=== PATIENT | female | born 1980 | race African-American/Black ===

== ENCOUNTER 2018-07-29 06:19 | Emergency (ER) | payer SELFPAY ==
[~2018-07-29] VITALS: Ht 165.1 cm; Wt 142.9 kg
[2018-07-29 06:23] VITALS: BP 138/76
[2018-07-29] MEDS ORDERED: HYDROcodone/APAP 5/325MG 1 TAB TABLET PO ONE (06:45)
[2018-07-29] MEDS ORDERED: ONDANSETRON ODT 4 MG TAB.RAPDIS. PO ONE (06:45)
--- NOTE | 2018-07-29 07:33 | RAD ---
RIGHT SHOULDER , 3 VIEWS Clinical Indication: FALL ON ICE THIS MORNING. RIGHT SCAPULAR PAIN Comparison: None. Findings: There is no acute fracture or dislocation. The acromioclavicular and glenohumeral joints are intact. The visualized lung is clear. There is no evidence of a displaced rib fracture. There is no soft tissue abnormality. IMPRESSION: No acute fracture or dislocation. Electronically signed by: Jeremias Rowell MD (07/29/2018 7:29 AM) [facility]
--- NOTE | 2018-07-29 07:35 | RAD ---
KNEE 3 VIEWS LEFT Clinical Indication: FALL ON ICE THIS MORNING. RIGHT KNEE PAIN Comparison: None. Findings: There is no acute fracture or dislocation. There is mild joint space narrowing in all 3 compartments. There are moderate marginal osteophytes of the lateral compartment. The patella is in anatomic position. There is no soft tissue abnormality. There is no joint effusion. IMPRESSION: 1. No acute fracture. 2. Lateral compartment primary or secondary degenerative arthropathy. Electronically signed by: Jeremias Rowell MD (07/29/2018 7:30 AM) [facility]
--- NOTE | 2018-07-29 07:52 | PHYS DOC ---
Past Medical History Past Medical History: Sickle Cell Disease, Other Additional Past Medical Histor: Sickle Beta Thalassemia, Pernicious Anemia, Osteoarthritis Past Surgical History: Cholecystectomy, Gastric Bypass, Other Additional Past Surgical Histo: Umbilical Hernia, Lumpectomy Alcohol Use: Rarely Drug Use: None Adult General Chief Complaint Chief Complaint: MECHANICAL FALL HPI HPI Patient is a 38 year old female who is presenting to the emergency room with chief complaint of fall she slipped on some slippery snow at work she hurt her right shoulder and her right knee and her right low back she also cracked a tooth no headache no loss of consciousness no neck pain. Review of Systems Review of Systems Respiratory: Denies cough or shortness of breath [] Cardiovascular: No additional information not addressed in HPI [] GI: Denies abdominal pain, nausea, vomiting, bloody stools or diarrhea [] Musculoskeletal: Integument: Denies rash or skin lesions [] Neurologic: Denies headache, focal weakness or sensory changes [] Endocrine: Denies polyuria or polydipsia [] All other systems were reviewed and found to be within normal limits, except as documented in this note. Current Medications Current Medications Current Medications Medications (Trade) Dose Ordered Sig/Xavier Start Time Stop Time Status Last Admin Dose Admin Acetaminophen/ Hydrocodone Bitart (Lortab 5/325) 2 tab 1X ONCE 07/29/18 06:45 07/29/18 06:46 DC 07/29/18 06:58 2 TAB Ondansetron HCl (Zofran Odt) 4 mg 1X ONCE 07/29/18 06:45 07/29/18 06:46 DC 07/29/18 06:57 4 MG Allergies Allergies Allergies Coded Allergies Type Severity Reaction Last Updated Verified NSAIDS (Non-Steroidal Anti-Inflamma Allergy Severe Hives, Throat Swelling Yes Physical Exam Physical Exam Constitutional: Well developed, well nourished, no acute distress, non-toxic appearance. [] HENT: Normocephalic, atraumatic, bilateral external ears normal, oropharynx moist, no oral exudates, nose normal. [] Eyes: PERRLA, EOMI, conjunctiva normal, no discharge. [] Neck: Normal range of motion, no tenderness, supple, no stridor. [] No chest wall tenderness Abdomen: Bowel sounds normal, soft, no tenderness, no masses, no pulsatile masses. [] Skin: Warm, dry, no erythema, no rash. Right paraspinous tenderness is noted. Extremities: Mild tenderness of the right shoulder also mild tenderness of the right knee no focal abnormality or trauma was identified otherwise passive range of motion of the shoulder essentially intact Neurologic: Alert and oriented X 3, normal motor function, normal sensory function, no focal deficits noted. [] Current Patient Data Vital Signs Vital Signs Date Time Temp Pulse Resp B/P (MAP) Pulse Ox O2 Delivery O2 Flow Rate FiO2 07/29/18 06:58 18 97 Room Air 07/29/18 06:23 98.1 87 138/76 (96) 98.1 EKG EKG [] Radiology/Procedures Radiology/Procedures [] Course & Med Decision Making Course & Med Decision Making Pertinent Labs and Imaging studies reviewed. (See chart for details) []Shoulder any x-ray were negative acute patient was given a sling for comfort recommended [id number] pain control and short note time off work given. Dragon Disclaimer Dragon Disclaimer This electronic medical record was generated, in whole or in part, using a voice recognition dictation system. Departure Departure Impression: Primary Impression: Shoulder pain Disposition: 01 HOME, SELF-CARE Condition: STABLE Patient Instructions: Shoulder Sprain HERMAN LINDA MD Jul 29, 2018 07:52
[2018-07-30] MEDS ORDERED: METH4TAB2 PO (09:13)
== END 2018-07-29 07:31 | disposition home or self-care (01) ==
LOC: ER 06:19
DX: M25.511 Pain in right shoulder (principal); M25.561 Pain in right knee; M54.5 Low back pain; G89.11 Acute pain due to trauma; M19.90 Unspecified osteoarthritis, unspecified site; Z86.2 Personal history of diseases of the blood and blood-forming organs and certain disorders involving the immune mechanism; Z88.6 Allergy status to analgesic agent; W00.0XXA Fall on same level due to ice and snow, initial encounter; Y93.89 Activity, other specified; Y92.89 Other specified places as the place of occurrence of the external cause; Y99.8 Other external cause status
CPT/HCPCS: 73030; 73562; 99284; Q0162

== ENCOUNTER 2018-07-30 07:19 | Emergency (ER) | payer SELFPAY ==
[~2018-07-30] VITALS: Ht 165.1 cm; Wt 147.4 kg
[2018-07-30 08:23] VITALS: BP 133/67
--- NOTE | 2018-07-30 08:34 | PHYS DOC ---
Past Medical History Past Medical History: Sickle Cell Disease, Other Additional Past Medical Histor: Sickle Beta Thalassemia, Pernicious Anemia, Osteoarthritis Past Surgical History: Cholecystectomy, Gastric Bypass, Other Additional Past Surgical Histo: Umbilical Hernia, Lumpectomy Alcohol Use: Rarely Drug Use: None Adult General Chief Complaint Chief Complaint: SOBEIDAUDLER HPI HPI Patient is a 38 year old female who presents today complaining of a sharp 8 out of 10 right shoulder pain that has been going on intermittently since Monday when she fell. Patient states she was at work, she states she slipped on ice and fell landing on her right shoulder. Patient denies any loss of consciousness. She states she was seen in the ED on Monday after falling, had negative x-rays and was provided a sling. She states she was also given a note for work for a couple days including today, she states her boss called her and asked her to go back to work today. She states when she was at work she opened a truck door and was pulling the door when she developed right shoulder pain. She states she heard a "pop" sound from the shoulder. Patient states the pain is worse on range of motion. She states she has not taken anything for her pain. Review of Systems Review of Systems Constitutional: Denies fever or chills [] Musculoskeletal: Reports right shoulder pain Integument: Denies rash or skin lesions [] Neurologic: Denies headache, focal weakness or sensory changes [] All other systems were reviewed and found to be within normal limits, except as documented in this note. Allergies Allergies Allergies Coded Allergies Type Severity Reaction Last Updated Verified NSAIDS (Non-Steroidal Anti-Inflamma Allergy Severe Hives, Throat Swelling Yes Physical Exam Physical Exam Constitutional: Well developed, well nourished, no acute distress, non-toxic appearance. [] Skin: Warm, dry, no erythema, no rash. [] Back: No tenderness, no CVA tenderness. [] Extremities: Right shoulder with no obvious deformity. Slight mild tenderness to the right scapular, adequate passive range of motion of the right shoulder. Adequate radial, ulnar and medial sensation to the RUE. +2 right radial pulse. Cap refill <2 seconds. Neurologic: Alert and oriented X 3, normal motor function, normal sensory function, no focal deficits noted. [] Psychologic: Affect normal, judgement normal, mood normal. [] Current Patient Data Vital Signs Vital Signs Date Time Temp Pulse Resp B/P (MAP) Pulse Ox O2 Delivery O2 Flow Rate FiO2 07/30/18 08:23 98.4 98 20 133/67 (89) 100 Room Air 98.4 EKG EKG [] Radiology/Procedures Radiology/Procedures []PROCEDURE: SHOULDER 2+V RIGHT Right shoulder, 3 views, 07/30/2017: HISTORY: Shoulder pain, limited range of motion No fracture or dislocation is identified. The periarticular soft tissues are unremarkable. IMPRESSION: No acute right shoulder abnormality is detected. Electronically signed by: Omari Goodman MD (07/30/2018 8:51 AM) [facility] DICTATED and SIGNED BY: OMARI GOODMAN MD DATE: 07/30/18 0881 Course & Med Decision Making Course & Med Decision Making Pertinent Labs and Imaging studies reviewed. (See chart for details) This is a 38-year-old female patient presenting to the ED today with right shoulder pain that began on Monday when she fell at work. 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 Right shoulder x-rays interpreted by radiologist are negative for any acute findings. Patient has a sling. Provided this patient an orthopedic doctor for follow-up. Provided prescription for Medrol Dosepak. Also recommended she follows up with workman comp. Ice elevation encouraged. Tylenol for pain. She states she is allergic to all NSAIDs. Dragon Disclaimer Dragon Disclaimer This electronic medical record was generated, in whole or in part, using a voice recognition dictation system. Departure Departure Impression: Primary Impression: Sprain of right shoulder Disposition: 01 HOME, SELF-CARE Condition: STABLE Referrals: SAIMA HENRIQUEZ (PCP) JAROD ECHEVARRIA MD Follow-up in 1-2 weeks Patient Instructions: Shoulder Sprain Additional Instructions: You were evaluated in the emergency room for ongoing right shoulder pain. Ice and elevate the extremity. Wear the sling as tolerated ensure you remove the right Upper extremity from the sling and take it through full range of motion every hour. Scripts Methylprednisolone (MEDROL) 4 Mg Tab.ds.pk 1 PKG PO UD, #1 PKG Prov: LATOYA DOMINGO BRUSH CLEANER 07/30/18 Problem Qualifiers Primary Impression: Sprain of right shoulder Encounter type: initial encounter Shoulder sprain type: unspecified sprain Qualified Codes: S43.401A - Unspecified sprain of right shoulder joint, initial encounter LATOYA DOMINGO APRN Jul 30, 2018 08:34
--- NOTE | 2018-07-30 08:56 | RAD ---
Right shoulder, 3 views, 07/30/2017: HISTORY: Shoulder pain, limited range of motion No fracture or dislocation is identified. The periarticular soft tissues are unremarkable. IMPRESSION: No acute right shoulder abnormality is detected. Electronically signed by: Omari Goodman MD (07/30/2018 8:51 AM) [facility]
[2018-07-30] MEDS ORDERED: METH4TAB2 PO (09:13)
== END 2018-07-30 09:30 | disposition home or self-care (01) ==
LOC: ER 07:19
DX: S43.491A Other sprain of right shoulder joint, initial encounter (principal); D57.1 Sickle-cell disease without crisis; Z90.49 Acquired absence of other specified parts of digestive tract; Z88.8 Allergy status to other drugs, medicaments and biological substances; W00.0XXA Fall on same level due to ice and snow, initial encounter; Y93.89 Activity, other specified; Y92.89 Other specified places as the place of occurrence of the external cause; Y99.0 Civilian activity done for income or pay
CPT/HCPCS: 73030; 99283

== ENCOUNTER 2019-05-27 15:37 | Emergency (ER) | payer SELFPAY ==
[~2019-05-27] VITALS: Ht 165.1 cm; Wt 145.1 kg
[~2019-05-27 15:37] MED LIST: METH4TAB2 PO
[2019-05-27 15:48] VITALS: BP 150/70
[2019-05-27] MEDS ORDERED: HYDROcodone/APAP 5/325MG 1 TAB TABLET PO ONE (16:00)
--- NOTE | 2019-05-27 16:42 | RAD ---
Examination: BREAST RIGHT History: Abscess. Lumpectomy one year ago. Previous history of abscess with drainage twice reported. Comparison/Correlation: None Findings: Ultrasound imaging of the right breast was performed in the retroareolar region. In the subareolar aspect, there is a very small fluid collection measuring 1.6 cm x 0.8 cm x 0.6 cm tall. There is no flow identified within or about this collection. This collection is in close proximity to the region of the lumpectomy scar. Impression: BI-RADS Category 2-benign. Very small fluid collection in the subareolar region. Correlate with prior exams if available. Electronically signed by: Deonte Rich MD (05/27/2019 4:39 PM) [facility]
[2019-05-27] MEDS ORDERED: CEPH500C PO (16:54)
--- NOTE | 2019-05-27 16:54 | PHYS DOC ---
Past Medical History Past Medical History: Diabetes-Type II, Other Additional Past Medical Histor: Sickle Beta Thalassemia, Pernicious Anemia, Osteoarthritis Past Surgical History: Gastric Bypass Additional Past Surgical Histo: HERNIA Alcohol Use: Occasionally Drug Use: None Adult General Chief Complaint Chief Complaint: ABSCESS HPI HPI Patient is a 39 year old female who presents to the emergency room with comp laints of redness and pain around her right nipple for the last 4 days. Patient reports concern because she has had a history of abscesses in the same area. A year ago the patient had a lump removed from the same breast. She denies any current drainage, fever, or abnormal nipple discharge. Patient states that she has been taking some leftover clindamycin from a previous prescription and has tried applying heat to the area with minimal relief in her symptoms. She currently rates her pain a 10 out of 10 on the pain scale. Patient states she is a type II diabetic but states that her blood sugars have been well-controlled recently. Review of Systems Review of Systems Constitutional: Denies fever or chills [] Eyes: Denies redness, or eye pain [] HENT: Denies nasal congestion or sore throat [] Respiratory: Denies cough or shortness of breath [] Cardiovascular: No additional information not addressed in HPI [] GI: Denies abdominal pain, nausea, vomiting, or diarrhea [] : Denies dysuria or hematuria [] Musculoskeletal: Denies back pain or joint pain [] Integument: see HPI Neurologic: Denies headache Complete systems were reviewed and found to be within normal limits, except as documented in this note. Current Medications Current Medications Current Medications Medications (Trade) Dose Ordered Sig/Xavier Start Time Stop Time Status Last Admin Dose Admin Acetaminophen/ Hydrocodone Bitart (Lortab 5/325) 1 tab 1X ONCE 05/27/19 16:00 05/27/19 16:01 DC 05/27/19 16:05 1 TAB Allergies Allergies Allergies Coded Allergies Type Severity Reaction Last Updated Verified NSAIDS (Non-Steroidal Anti-Inflamma Allergy Severe Hives, Throat Swelling 07/29/18 Yes Physical Exam Physical Exam Constitutional: Well developed, well nourished, no acute distress, non-toxic appearance, obese. [] HENT: Normocephalic, atraumatic, bilateral external ears normal, oropharynx moist, no oral exudates, nose normal. [] Eyes: PERRLA, EOMI, conjunctiva normal, no discharge. [] Neck: Normal range of motion, no tenderness, supple, no stridor. [] Cardiovascular:Heart rate regular rhythm, no murmur [] Lungs & Thorax: Respirations even and unlabored, no retractions, no respiratory distress Skin: Warm, dry; erythema and warmth noted around right nipple of breast concerning for cellulitis, no pustule or drainage present Extremities: No cyanosis, ROM intact, no edema. [] Neurologic: Alert and oriented X 3, no focal deficits noted. [] Psychologic: Affect normal, judgement normal, mood normal. [] Current Patient Data Vital Signs Vital Signs Date Time Temp Pulse Resp B/P (MAP) Pulse Ox O2 Delivery O2 Flow Rate FiO2 05/27/19 16:05 20 98 Room Air 05/27/19 15:48 98.8 94 150/70 (96) 98.8 EKG EKG [] Radiology/Procedures Radiology/Procedures PROCEDURE: BREAST RIGHT Examination: BREAST RIGHT History: Abscess. Lumpectomy one year ago. Previous history of abscess with drainage twice reported. Comparison/Correlation: None Findings: Ultrasound imaging of the right breast was performed in the retroareolar region. In the subareolar aspect, there is a very small fluid collection measuring 1.6 cm x 0.8 cm x 0.6 cm tall. There is no flow identified within or about this collection. This collection is in close proximity to the region of the lumpectomy scar. Impression: BI-RADS Category 2-benign. Very small fluid collection in the subareolar region. Correlate with prior exams if available.[] Course & Med Decision Making Course & Med Decision Making Pertinent Labs and Imaging studies reviewed. (See chart for details) [] Dragon Disclaimer Dragon Disclaimer This electronic medical record was generated, in whole or in part, using a voice recognition dictation system. Departure Departure Impression: Primary Impression: Cellulitis of right breast Additional Impression: Pain of right breast Disposition: 01 HOME, SELF-CARE Condition: STABLE Referrals: NO PCP (PCP) Patient Instructions: Cellulitis, [id number] Additional Instructions: Fill the prescription(s) and use as directed. You may take tylenol as needed for pain. Apply warm, moist packs to the area to help decrease discomfort. Follow up with your primary care doctor in 48 hours to have site rechecked. Return to the ER if your symptoms worsen. Scripts Hydrocodone Bit/Acetaminophen (HYDROCODONE-APAP 5-325 ) 1 Tab Tablet 1 TAB PO PRN Q6HRS PRN for PAIN for 3 Days, #10 TAB 0 Refills Prov: LEBRON TAVERA APRN 05/27/19 Cephalexin (CEPHALEXIN) 500 Mg Capsule 1 CAP PO QID for 10 Days, #40 CAP 0 Refills Prov: LEBRON TAVERA DYE MIXER 05/27/19 Problem Qualifiers LEBRON TAVERA DYE MIXER May 27, 2019 16:54
[2019-05-27] MEDS ORDERED: HYDR-2761 PO (17:03)
== END 2019-05-27 17:09 | disposition home or self-care (01) ==
LOC: ER 15:37
DX: N61.0 Mastitis without abscess (principal); N64.4 Mastodynia; E11.8 Type 2 diabetes mellitus with unspecified complications; M19.90 Unspecified osteoarthritis, unspecified site
CPT/HCPCS: 76641; 99284

== ENCOUNTER 2019-10-06 12:55 | Emergency (ER) | payer SELFPAY ==
[~2019-10-06] VITALS: Ht 165.1 cm; Wt 131.3 kg
[~2019-10-06 12:55] MED LIST changes: +CEPH500C PO; +HYDR-2761 PO
[2019-10-06] MEDS ORDERED: HYDROcodone/APAP 5/325MG 1 TAB TABLET PO ONE (13:45)
[2019-10-06] MEDS ORDERED: CEPH500T PO (13:55)
--- NOTE | 2019-10-06 13:55 | PHYS DOC ---
Past Medical History Past Medical History: Abscess, Anemia Additional Past Medical Histor: Sickle Beta Thalassemia, Pernicious Anemia, Osteoarthritis Past Surgical History: Other Additional Past Surgical Histo: Right breast lump Smoking Status: Never Smoker Alcohol Use: None Drug Use: None Adult General Chief Complaint Chief Complaint: ABSCESS HPI HPI Patient is a 39 year old female who presents with abscess to right breast. Patient states she has had these in the past, has them every 6 to 8 months. States that the shortness of years ago after she had a lump removed from her breast by surgeon at [facility]. States she has never followed up with a surgeon, however was told she needed to follow-up with them if she continued to have these as there may have been tissue remaining. Patient states last time she been on antibiotics was approximately 6 to 8 months ago. States she has been trying some Tylenol at home which has not seemed to help. States she has tried some warm and cold compacts on it. States he just feels a lot of pressure behind her right nipple, as it usually does. Denies any recent fever. Denies any additional erythema. Review of Systems Review of Systems Constitutional: Denies fever or chills [] Musculoskeletal: Denies back pain or joint pain [] Integument: Denies rash or skin lesions other than noted swelling behind her right breast, [] Neurologic: Denies headache, focal weakness or sensory changes [] All other systems were reviewed and found to be within normal limits, except as documented in this note. Allergies Allergies Allergies Coded Allergies Type Severity Reaction Last Updated Verified NSAIDS (Non-Steroidal Anti-Inflamma Allergy Severe Hives, Throat Swelling 07/29/18 Yes Physical Exam Physical Exam Constitutional: Well developed, well nourished, no acute distress, non-toxic appearance. [] Skin: Warm, dry, no erythema, no rash. Approximately 1 cm diameter firm nodule noted behind right nipple at the 9 o'clock position. Tenderness reported. Noted incision at same position, with small scab noted along border of areola. No purulence noted. No open lesions noted, no redness or streaking noted. [] Extremities: No tenderness, no cyanosis, no clubbing, ROM intact, no edema. [] Neurologic: Alert and oriented X 3, normal motor function, normal sensory function, no focal deficits noted. [] Psychologic: Affect normal, judgement normal, mood normal. [] Current Patient Data Vital Signs Vital Signs Date Time Temp Pulse Resp B/P (MAP) Pulse Ox O2 Delivery O2 Flow Rate FiO2 10/06/19 13:25 98.5 93 20 148/90 (109) 98 Room Air 98.5 EKG EKG [] Radiology/Procedures Radiology/Procedures [] Course & Med Decision Making Course & Med Decision Making Pertinent Labs and Imaging studies reviewed. (See chart for details) [] Reviewed prior imaging studies from 4 to 6 months ago, ultrasound had been performed, noting abscess. Patient reports this is identical to her previous visits for the same. States that she tries to keep the abscess clean, however educated on coming back. Advised patient of importance that she follow-up with the surgeon who performed this to determine the need to go in and ensure there is no additional tissue in there as she was advised by them. Advised patient to take antibiotics in entirety. Advised patient to continue with warm and cold packs. Advised patient abscesses from at this time, with little likelihood of any purulent material being to be drained. Dragon Disclaimer Dragon Disclaimer This electronic medical record was generated, in whole or in part, using a voice recognition dictation system. Departure Departure Impression: Primary Impression: Cellulitis of right breast Disposition: HOME, SELF-CARE Condition: STABLE Referrals: NO PCP (PCP) Patient Instructions: Abscess Additional Instructions: Again as we discussed, try to contact the surgeon who performed your surgery. Also contact your primary care provider to see if they can do any referral. Keep using Tylenol for your swelling and discomfort. Continue to use the warm or cold compresses as you have been. Take your antibiotics as prescribed for the entire duration. Scripts Cephalexin (CEPHALEXIN) 500 Mg Tablet 1 TAB PO QID, #40 TAB Prov: KENNY DE LA ROSA APRN 10/06/19 KENNY DE LA ROSA APRN Oct 06, 2019 13:55
[2019-10-06 14:05] VITALS: BP 134/87
== END 2019-10-06 14:05 | disposition home or self-care (01) ==
LOC: ER 12:55
DX: N61.0 Mastitis without abscess (principal); Z98.890 Other specified postprocedural states; Z88.4 Allergy status to anesthetic agent
CPT/HCPCS: 99283

== ENCOUNTER 2021-04-03 17:51 | Emergency (ER) | payer SELFPAY ==
[~2021-04-03] VITALS: Ht 165.1 cm; Wt 136.0 kg
[~2021-04-03 17:51] MED LIST changes: +CEPH500T PO
[2021-04-03] MEDS ORDERED: IV NORMAL SALINE 1000ML BAG 1,000 ML IV ONE ×2 (18:15→19:30)
[2021-04-03 18:28] LABS: BASO # 0.1 x10^3/uL (0.0-0.2); BASO % 1 % (0-3); EOS # 0.3 x10^3/uL (0.0-0.7); EOS % 3 % (0-3); HEMATOCRIT 33.1 % (36.0-47.0); HEMOGLOBIN 10.7 g/dL (12.0-15.5); LYMPH # 0.6 x10^3/uL (1.0-4.8); LYMPH % 7 % (24-48); MEAN CORPUSCULAR HEMOGLOBIN 24 pg (25-35); MEAN CORPUSCULAR HGB CONC 32 g/dL (31-37); MEAN CORPUSCULAR VOLUME 74 fL (79-100); MONO # 0.4 x10^3/uL (0.0-1.1); MONO % 5 % (0-9); NEUT # 7.3 x10^3/uL (1.8-7.7); NEUT % 84 % (31-73); PLATELET COUNT 384 x10^3/uL (140-400); RED BLOOD COUNT 4.45 x10^6/uL (3.50-5.40); RED CELL DISTRIBUTION WIDTH 18.2 % (11.5-14.5); WHITE BLOOD COUNT 8.7 x10^3/uL (4.0-11.0)
[2021-04-03 18:40] LABS: CALCIUM 8.9 mg/dL (8.5-10.1); CREATININE 1.5 mg/dL (0.6-1.0); GFR 46.1; POTASSIUM 3.6 mmol/L (3.5-5.1)
[2021-04-03 18:42] LABS: ALBUMIN 2.9 g/dL (3.4-5.0); ALBUMIN/GLOBULIN RATIO 0.6 (1.0-1.7); TOTAL BILIRUBIN 0.3 mg/dL (0.2-1.0); TOTAL PROTEIN 7.8 g/dL (6.4-8.2)
[2021-04-03 19:11] LABS: PROTHROMBIN TIME PATIENT 13.4 SEC (11.7-14.0)
[2021-04-03 19:16] LABS: D-DIMER 0.79 ug/mlFEU (0.00-0.50)
--- NOTE | 2021-04-03 19:23 | PHYS DOC ---
Past Medical History Past Medical History: Abscess, Anemia Additional Past Medical Histor: Sickle Beta Thalassemia, Pernicious Anemia, Osteoarthritis (KATHRYNNOLBERTO M CANE FURNITURE MAKER) Past Surgical History: Other Additional Past Surgical Histo: Right breast lump (KATHRYNNOLBERTO M CANE [employer]URNITURE MAKER) Smoking Status: Never Smoker Alcohol Use: None Drug Use: None (CHEYENNE PERALTAPAUL Phan CANE [employer]URNITURE [employer]KER) General Adult EDM: Chief Complaint: HYPOTENSION HPI: HPI: Patient is a 41 year old female who presents with states she has been working a lot and she works nights as a security system engineer at [employer] and has not been sleeping because she comes home and takes care of her mother and her sister and gets very little sleep. She states that her friend brought her over some food and brought her Tylenol PM and said this will make you sleep. She states that that is the last thing she really remembers. She states she is just been so tired and fatigued over the last couple of weeks. She states that she was recently in the hospital because she had a bad allergic reaction that caused hinojosa and blisters to her bilateral armpits. Patient states that she is unsure if she just fell asleep or if she passed out today but the next and she really remembers is that EMS was around her. She stated that she was needing oxygen. She states sometimes her oxygen drops. She states she is also think she has been very dehydrated. She states she been outside a lot and she works outside. Patient has a history of sickle cell beta thalassemia, anemia, pernicious an emia, osteoarthritis. (KATHRYNNOLBERTO M CANE FURNITURE MAKER) Review of Systems: Review of Systems: Constitutional: Denies fever or chills. [] Eyes: Denies change in visual acuity. [] HENT: Denies nasal congestion or sore throat. [] Respiratory: Denies cough or shortness of breath. [] Cardiovascular: Denies chest pain or edema. [] GI: Denies abdominal pain, nausea, vomiting, bloody stools or diarrhea. [] : Denies dysuria. [] Musculoskeletal: Denies back pain or joint pain. [] Integument: Denies rash. + Bilateral axillary pain [] Neurologic: Denies headache, focal weakness or sensory changes. + Generalized fatigue [] Endocrine: Denies polyuria or polydipsia. [] Lymphatic: Denies swollen glands. [] Psychiatric: Denies depression or anxiety. + Insomnia [] (JAYMENOLBERTO CANE FURNITURE [employer]KER) Heart Score: C/O Chest Pain: No Risk Factors: Risk Factors: DM, Current or recent (<one month) smoker, HTN, HLP, family history of CAD, obesity. Risk Scores: Score 0 - 3: 2.5% MACE over next 6 weeks - Discharge Home Score 4 - 6: 20.3% MACE over next 6 weeks - Admit for Clinical Observation Score 7 - 10: 72.7% MACE over next 6 weeks - Early Invasive Strategies ([facility]E [facility]URNITURE [facility]KER) Current Medications: Current Medications Medications (Trade) Dose Ordered Sig/Xavier Start Time Stop Time Status Last Admin Dose Admin Sodium Chloride 1,000 ml @ 1,000 mls/hr 1X ONCE 04/03/21 18:15 04/03/21 19:14 [facility]) Allergies: Allergies: Allergies Coded Allergies Type Severity Reaction Last Updated Verified NSAIDS (Non-Steroidal Anti-Inflamma Allergy Severe Hives, Throat Swelling 07/29/18 Yes ([facility]) Physical Exam: PE: Constitutional: Well developed, well nourished, no acute distress, non-toxic appearance. [] HENT: Normocephalic, atraumatic, bilateral external ears normal, oropharynx moist, no oral exudates, nose normal. [] Eyes: PERRLA, EOMI, conjunctiva normal, no discharge. [] Neck: Normal range of motion, no tenderness, supple, no stridor. [] Cardiovascular:Heart rate regular rhythm, no murmur [] Lungs & Thorax: Bilateral breath sounds clear to auscultation [] Abdomen: Bowel sounds normal, soft, no tenderness, no masses, no pulsatile masses. [] Skin: Warm, dry, no erythema, no rash. Open draining wounds from the allergic reaction she had under the left axillary and it does go down onto the rib cage side [] Back: No tenderness, no CVA tenderness. [] Extremities: No tenderness, no cyanosis, no clubbing, ROM intact, no edema. [] Neurologic: Alert and oriented X 3, normal motor function, normal sensory function, no focal deficits noted. [] Psychologic: Affect normal, judgement normal, mood normal. [] (NOLBERTO PERALTA APRN) Current Patient Data: Labs: Laboratory Tests Test 04/03/21 18:09 White Blood Count 8.7 x10^3/uL (4.0-11.0) Red Blood Count 4.45 x10^6/uL (3.50-5.40) Hemoglobin 10.7 g/dL (12.0-15.5) L Hematocrit 33.1 % (36.0-47.0) L Mean Corpuscular Volume 74 fL (79-100) L Mean Corpuscular Hemoglobin 24 pg (25-35) L Mean Corpuscular Hemoglobin Concent 32 g/dL (31-37) Red Cell Distribution Width 18.2 % (11.5-14.5) H Platelet Count 384 x10^3/uL (140-400) Neutrophils (%) (Auto) 84 % (31-73) H Lymphocytes (%) (Auto) 7 % (24-48) L Monocytes (%) (Auto) 5 % (0-9) Eosinophils (%) (Auto) 3 % (0-3) Basophils (%) (Auto) 1 % (0-3) Neutrophils # (Auto) 7.3 x10^3/uL (1.8-7.7) Lymphocytes # (Auto) 0.6 x10^3/uL (1.0-4.8) L Monocytes # (Auto) 0.4 x10^3/uL (0.0-1.1) Eosinophils # (Auto) 0.3 x10^3/uL (0.0-0.7) Basophils # (Auto) 0.1 x10^3/uL (0.0-0.2) Sodium Level 138 mmol/L (136-145) Potassium Level 3.6 mmol/L (3.5-5.1) Chloride Level 103 mmol/L (98-107) Carbon Dioxide Level 25 mmol/L (21-32) Anion Gap 10 (6-14) Blood Urea Nitrogen 14 mg/dL (7-20) Creatinine 1.5 mg/dL (0.6-1.0) H Estimated GFR (Cockcroft-Gault) 46.1 BUN/Creatinine Ratio 9 (6-20) Glucose Level 145 mg/dL (70-99) H Calcium Level 8.9 mg/dL (8.5-10.1) Magnesium Level 2.0 mg/dL (1.8-2.4) Total Bilirubin 0.3 mg/dL (0.2-1.0) Aspartate Amino Transferase (AST) 55 U/L (15-37) H Alanine Aminotransferase (ALT) 40 U/L (14-59) Alkaline Phosphatase 127 U/L (46-116) H Troponin I Quantitative < 0.017 ng/mL (0.000-0.055) KI-Clg-V-Type Natriuretic Peptide 26 pg/mL (0-124) Total Protein 7.8 g/dL (6.4-8.2) Albumin 2.9 g/dL (3.4-5.0) L Albumin/Globulin Ratio 0.6 (1.0-1.7) L Laboratory Tests 04/03/21 18:09 Laboratory Tests 04/03/21 18:09 Vital Signs: Vital Signs Date Time Temp Pulse Resp B/P (MAP) Pulse Ox O2 Delivery O2 Flow Rate FiO2 04/03/21 17:51 101.3 124 16 109/53 (71) 88 Room Air 101.3 (NOLBERTO PERALTA APRN) EKG: EK by Dr. Nixon as sinus tachycardia no STEMI (NOLBERTO PERALTA APRN) Radiology/Procedures: Radiology/Procedures: [] Impression: [facility] [address] [place] [address] IMAGING REPORT Signed PATIENT: AMARJIT GILBERTACCOUNT: [id number] : 1980 LOCATION: ER AGE: 41 SEX: F EXAM STATUS: PRE ER ORD. PHYSICIAN: NOLBERTO PERALTA APRN REASON: AMS PROCEDURE: CT HEAD WO CONTRAST CT HEAD/BRAIN WO History: Altered mental status. Comparison: None. Technique: Noncontrast CT imaging was performed of the head. Findings: No intracranial hemorrhage. No mass effect. No hydrocephalus. No evidence of acute territorial infarction. Imaged orbits are unremarkable. Imaged paranasal sinuses and mastoid air cells are clear. The scalp and calvarium are unremarkable. Impression: 1. No acute intracranial abnormality. ----- Exposure: One or more of the following individualized dose reduction techniques were utilized for this examination: 1. Automated exposure control 2. Adjustment of the mA and/or kV according to patient size 3. Use of iterative reconstruction technique. Electronically signed by: Santiago Schwab MD (04/03/2021 7:38 PM) [facility] DICTATED and SIGNED BY: SANTIAGO SCHWAB MD DATE: 04/03/[id number] 0 [facility] [address] [place] [address] IMAGING REPORT Signed PATIENT: AMARJIT GILBERTACCOUNT: [id number] : 1980 LOCATION: ER AGE: 41 SEX: F EXAM STATUS: PRE ER ORD. PHYSICIAN: NOLBERTO PERALTA APRN REASON: AMS PROCEDURE: PORTABLE CHEST 1V XR CHEST 1V History: Altered mental status. Comparison: None. Technique: AP radiograph of the chest. Findings: Low lung volumes. Question subtle airspace opacity without focal consolidation, pleural effusion or pneumothorax. The cardiomediastinal silhouette and pulmonary vasculature are within normal limits. No acute osseous abnormality. Soft tissues are unremarkable. Impression: 1. Low lung volumes. Possible subtle opacification may represent diffuse groundglass process, however findings may be related to low lung volumes and atelectasis. Electronically signed by: Santiago Schwab MD (04/03/2021 10:16 PM) [facility] DICTATED and SIGNED BY: SANTIAGO SCHWAB MD DATE: 04/03/[id number] 0 [facility] [address] [place] [address] IMAGING REPORT Signed PATIENT: AMARJIT GILBERTACCOUNT: [id number] : 1980 LOCATION: ER AGE: 41 SEX: F EXAM STATUS: PRE ER ORD. PHYSICIAN: NOLBERTO PERALTA APRN REASON: hypoxia PROCEDURE: CT ANGIOGRAPHY CHEST Study: CT CHEST WITH CONTRAST - PULMONARY ANGIOGRAM History: Hypoxia. Pulmonary embolism. Comparison: None. Technique: Helical CT of the chest performed after the administration of 85 cc Omnipaque 350 intravenous contrast and timed for angiographic evaluation of the pulmonary arteries per PE protocol. Coronal and sagittal 3D MIP reformations were obtained. One or more of the following individualized dose reduction techniques were utilized for this examination: 1. Automated exposure control 2. Adjustment of the mA and/or kV according to patient size 3. Use of iterative reconstruction technique. Findings: Pulmonary Arteries: Limited assessment for pulmonary emboli due to patient body habitus and bolus timing. No saddle or main pulmonary embolism is apparent. Prominence of the main pulmonary artery measuring 3.1 cm transverse on image 58 series 3. Heart/Systemic Vasculature: No aortic aneurysm or dissection. Heart size is within normal limits. No findings of overt right heart strain. Mediastinum: Possible tiny hiatal hernia. No mediastinal or hilar lymphadenopathy. No pericardial effusion. Lungs: Asymmetric elevation of the right hemidiaphragm with mild overlying volume loss. No significant pulmonary nodule or infiltrate. Small cystic foci at the left lung apex with an adjacent granuloma. The central airways are patent. No pleural effusion or pneumothorax. Neck/Axilla/Body Wall: The visualized thyroid is within normal limits. Mildly prominent left axillary lymph nodes relative to the right but still measuring a centimeter or less short axis. Upper Abdomen: Mild splenomegaly. Surgically absent gallbladder. Hepatic steatosis. Gastric bypass. Bones: Age advanced degenerative changes at the right shoulder with cystic change at the lower glenoid. No acute or aggressive osseous process. Vertebral body height is adequate. Miscellaneous: None. IMPRESSION: 1. Limited assessment for pulmonary emboli due to bolus timing and patient body habitus. No saddle or main embolism is apparent. Incomplete evaluation more distally. No CT manifestations of overt right heart strain however the main pulmonary artery is mildly prominent which could indicate chronically elevated pulmonary arterial pressures. 2. No significant pulmonary nodule or airspace infiltrate. Asymmetric elevation of the right hemidiaphragm with mild overlying volume loss. 3. Mild splenomegaly. Hepatic steatosis. 4. Mild asymmetric prominence of left axillary lymph nodes but not pathologically enlarged at a centimeter or less short axis. An inflammatory/reactive etiology is favored most likely. Consider eventual m ammographic evaluation if not recently performed. Electronically signed by: WILLIAM BUTTS MD (04/03/2021 11:01 PM) [facility] DICTATED and SIGNED BY: WILLIAM BUTTS MD DATE: 04/03/21 [id number] (NOLBERTO PERALTA APRN) Course & Med Decision Making: Course & Med Decision Making Pertinent Labs and Imaging studies reviewed. (See chart for details) COVID-19 CRITERIA: The patient was evaluated during the global COVID-19 pandemic, and that diagnosis was suspected/considered upon their initial pr esentation. Their evaluation, treatment and testing was consistent with current guidelines for patients who present with complaints or symptoms that may be related to COVID-19. See HPI. Patient is febrile. Alert and oriented x4. Speaks in full clear sentences. Skin pink warm and dry. Lungs are clear in upper lobes and diminished in lower lobes. She is tachycardic. Chest x-ray showed some possible pneumonia. CT chest showed no real acute findings. Blood work generally unremarkable. Patient 2300: Patient's heart rate has come down nicely. She is receiving fluids. Awaiting urinalysis. Patient is reported off to Dr. Nixon. [] (NOLBERTO PERALTA APRN) Course & Med Decision Making Patient was evaluated for chief complaint. Work-up consisted of laboratory analysis and radiologic imaging. Results reviewed no significant abnormalities. Patient with a cellulitis left axilla she received a dose of Zosyn. After review of work-up I feel that patient is safe for discharge. I believe patient's hypotension related to heat exhaustion. Patient received IV fluids she has not been hypotensive. Patient states she feels well and is comfortable going home. Patient will be discharged home on clindamycin. (EDIN NIXON I DO) Dragon Disclaimer: Oscar Disclaimer: This electronic medical record was generated, in whole or in part, using a voice recognition dictation system. (NOLBERTO PERALTA APRN) COVID-19 Patient Risks: Age 65 or older: No Sign of co-morbidity: Yes Exp to person + for COVID: No Exp to PUI: No Travel from affected area: No Lower respiratory symptoms: Yes Fever: Yes Other: No (NOLBERTO PERALTA APRN) PPE Use: Full PPE with N95 mask or PAPR: Yes (NOLBERTO PERALTA APRN) Departure Departure Impression: Primary Impression: Wound infection Additional Impressions: Syncope Qualified Codes: R55 - Syncope and collapse Fever Qualified Codes: R50.9 - Fever, unspecified Disposition: 01 HOME / SELF CARE / HOMELESS Condition: STABLE Referrals: NO PCP (PCP) Patient Instructions: Cellulitis, Syncope Additional Instructions: Vasovagal Syncope Scripts Clindamycin Hcl (CLINDAMYCIN HCL) 300 Mg Capsule 1 CAP PO TID, #21 CAP Prov: EDIN NIXON DO 04/04/21 NOLBERTO PERALTA APRN Apr 03, 2021 19:23 EDIN NIXON DO Apr 04, 2021 01:26
[2021-04-03 19:28] LABS: ACETAMIN < 2 mcg/ml (10-30); SALIC 4.4 mg/dL (2.8-20.0)
[2021-04-03] MEDS ORDERED: IOHEXOL 350 MG/ML 100 ML VIAL. IV ONE (19:30)
--- NOTE | 2021-04-03 19:30 | EKG ---
[facility] [address] [place] [address] Test Date: 2021-04-03 Test Time: 19:25:23 Pat Name: AMARJIT GILBERT Department: Room: Gender: F Teacher Early Childhood Development: : 1980 Requested By: NOLBERTO PERALTA Order Number: [id number] Reading MD: Measurements Intervals [place] Rate: 104 P: 45 NE: 130 QRS: -15 QRSD: 80 T: 19 QT: 342 QTc: 456 Interpretive Statements SINUS TACHYCARDIA LEFTWARD AXIS INCOMPLETE RIGHT BUNDLE BRANCH BLOCK QRS(T) CONTOUR ABNORMALITY CONSIDER ANTEROLATERAL MYOCARDIAL DAMAGE POSSIBLY ABNORMAL ECG RI6.01 No previous ECG available for comparison
--- NOTE | 2021-04-03 19:40 | RAD ---
CT HEAD/BRAIN WO History: Altered mental status. Comparison: None. Technique: Noncontrast CT imaging was performed of the head. Findings: No intracranial hemorrhage. No mass effect. No hydrocephalus. No evidence of acute territorial infar ction. Imaged orbits are unremarkable. Imaged paranasal sinuses and mastoid air cells are clear. The scalp a nd calvarium are unremarkable. Impression: 1. No acute intracranial abnormality. ----- Exposure: One or more of the following individualized dose reduction techniques were utilized for thi s examination: 1. Automated exposure control 2. Adjustment of the mA and/or kV according to patient size 3. Use of iterative reconstruction technique. Electronically signed by: Santiago Williamson MD (04/03/2021 7:38 PM) [facility]
[2021-04-03] MEDS ORDERED: ACETAMINOPHEN 500 MG TABLET PO ONE (20:45)
--- NOTE | 2021-04-03 22:18 | RAD ---
XR CHEST 1V History: Altered mental status. Comparison: None. Technique: AP radiograph of the chest. Findings: Low lung volumes. Question subtle airspace opacity without focal consolidation, pleural effusion or p neumothorax. The cardiomediastinal silhouette and pulmonary vasculature are within normal limits. No acute osseous abnormality. Soft tissues are unremarkable. Impression: 1. Low lung volumes. Possible subtle opacification may represent diffuse groundglass process, howeve r findings may be related to low lung volumes and atelectasis. Electronically signed by: Santiago Williamson MD (04/03/2021 10:16 PM) [facility]
[2021-04-03] MEDS ORDERED: PIPERACILLIN/TAZOBACTAM 3.375 GM in IV NORMAL SALINE 50ML 50 ML IV ONE (23:00)
--- NOTE | 2021-04-03 23:04 | RAD ---
Study: CT CHEST WITH CONTRAST - PULMONARY ANGIOGRAM History: Hypoxia. Pulmonary embolism. Comparison: None. Technique: Helical CT of the chest performed after the administration of 85 cc Omnipaque 350 intrave nous contrast and timed for angiographic evaluation of the pulmonary arteries per PE protocol. Rae l and sagittal 3D MIP reformations were obtained. One or more of the following individualized dose reduction techniques were utilized for this examinat ion: 1. Automated exposure control 2. Adjustment of the mA and/or kV according to patient size 3. Use of iterative reconstruction technique. Findings: Pulmonary Arteries: Limited assessment for pulmonary emboli due to patient body habitus and bolus jett ing. No saddle or main pulmonary embolism is apparent. Prominence of the main pulmonary artery measur ing 3.1 cm transverse on image 58 series 3. Heart/Systemic Vasculature: No aortic aneurysm or dissection. Heart size is within normal limits. No findings of overt right heart strain. Mediastinum: Possible tiny hiatal hernia. No mediastinal or hilar lymphadenopathy. No pericardial eff usion. Lungs: Asymmetric elevation of the right hemidiaphragm with mild overlying volume loss. No significan t pulmonary nodule or infiltrate. Small cystic foci at the left lung apex with an adjacent granuloma. The central airways are patent. No pleural effusion or pneumothorax. Neck/Axilla/Body Wall: The visualized thyroid is within normal limits. Mildly prominent left axillary lymph nodes relative to the right but still measuring a centimeter or less short axis. Upper Abdomen: Mild splenomegaly. Surgically absent gallbladder. Hepatic steatosis. Gastric bypass. Bones: Age advanced degenerative changes at the right shoulder with cystic change at the lower glenoi d. No acute or aggressive osseous process. Vertebral body height is adequate. Miscellaneous: None. IMPRESSION: 1. Limited assessment for pulmonary emboli due to bolus timing and patient body habitus. No saddle o r main embolism is apparent. Incomplete evaluation more distally. No CT manifestations of overt right heart strain however the main pulmonary artery is mildly prominent which could indicate chronically elevated pulmonary arterial pressures. 2. No significant pulmonary nodule or airspace infiltrate. Asymmetric elevation of the right hemidia phragm with mild overlying volume loss. 3. Mild splenomegaly. Hepatic steatosis. 4. Mild asymmetric prominence of left axillary lymph nodes but not pathologically enlarged at a cent imeter or less short axis. An inflammatory/reactive etiology is favored most likely. Consider eventua l mammographic evaluation if not recently performed. Electronically signed by: WILLIAM BUTTS MD (04/03/2021 11:01 PM) [facility]
[2021-04-03 23:28] LABS: BILIRUBIN,URINE NEGATIVE (NEG); CLARITY,URINE CLEAR; COLOR,URINE YELLOW; NITRITE,URINE NEGATIVE (NEG); PH,URINE 5.5 (<5.0-8.0); PROTEIN,URINE 30 mg/dL (NEG-TRACE); UROBILINOGEN,URINE 0.2 mg/dL (0.2 mg/dL)
[2021-04-03 23:34] LABS: BACTERIA,URINE 0 /HPF (0-FEW); BARBITURATES NEG (NEG); BENZODIAZEPINES NEG (NEG); CANNABINOIDS NEG (NEG); COCAINE NEG (NEG); METHADONE NEG (NEG); OPIATES POS (NEG); PHENCYCLIDINE NEG (NEG); RBC,URINE 20-40 /HPF (0-2)
[2021-04-03 23:35] LABS: HYALINE CASTS, URINE FEW /HPF
[2021-04-03 23:37] LABS: AMPHETAMINE/METHAMPHETAMINE NEG (NEG)
[2021-04-04] MEDS ORDERED: CLIN300C9 PO (01:26)
[2021-04-04 01:32] VITALS: BP 118/67
--- NOTE | 2021-04-04 16:05 | NUR ---
IP: Attempted to contact pt concerning covid results. The phone number provided is not in service and no other contact number provided.
== END 2021-04-04 01:49 | disposition home or self-care (01) ==
LOC: ER 17:51
DX: T81.49XA Infection following a procedure, other surgical site, initial encounter (principal); Z20.822 Contact with and (suspected) exposure to COVID-19; R55 Syncope and collapse; R51.9 Headache, unspecified; R50.9 Fever, unspecified; Y84.8 Other medical procedures as the cause of abnormal reaction of the patient, or of later complication, without mention of misadventure at the time of the procedure; Y92.89 Other specified places as the place of occurrence of the external cause
CPT/HCPCS: 36415; 70450; 71045; 71275; 80053; 80307; 80329; 81001; 83605; 83735; 83880; 84484; 85025; 85045; 85379; 85610; 87086; 87426; 93005; 96361; 96365; 96366; 99285; J2543; J7030; Q9967; U0003; U0005; G0480